=== PATIENT | female | born 1955 | race Caucasian/White ===

== ENCOUNTER → 2024-09-09 | Outpatient (CLI) | payer MEDICARE ==
[2024-09-09 17:13] LABS: HEMATOCRIT 46.1 % (37.0-47.0); HEMOGLOBIN 15.1 g/dL (12.5-16.0); RED BLOOD COUNT 5.06 M/mm3 (4.10-5.30); RED CELL DISTRIBUTION WIDTH 13.4 % (11.5-14.5); WHITE BLOOD COUNT 7.3 K/mm3 (4.8-10.8)
[2024-09-09 17:26] LABS: ALBUMIN 4.5 g/dL (3.4-4.8); CALCIUM 10.4 mg/dL (8.3-10.5)
[2024-09-09 17:28] LABS: TOTAL PROTEIN 7.9 g/dL (6.2-8.1)
[2024-09-09 17:30] LABS: TOTAL BILIRUBIN 0.5 mg/dL (0.2-1.2)
[2024-09-10 20:49] LABS: HEPATITIS C VIRUS ANTIBODY Nonreactive (Nonreactiv)
== END ==
LOC: RAD 14:59 → LAB 14:59 → MAMMO 15:00
PROVIDERS: Family Medicine
DX: Z13.820 Encounter for screening for osteoporosis (principal); Z13.220 Encounter for screening for lipoid disorders; Z11.59 Encounter for screening for other viral diseases; Z11.4 Encounter for screening for human immunodeficiency virus [HIV]; M81.0 Age-related osteoporosis without current pathological fracture; M32.9 Systemic lupus erythematosus, unspecified; I73.00 Raynaud's syndrome without gangrene

== ENCOUNTER → 2024-09-09 | Outpatient (CLI) | payer MEDICARE | LOC: MAMMO 14:30 | DX: Z12.31 Encounter for screening mammogram for malignant neoplasm of breast (principal) ==